=== PATIENT | female | born 1945 | race Caucasian/White ===

== ENCOUNTER → 2023-06-20 08:41 | Outpatient (REF) | payer MEDICARE, OTHER, SELFPAY | LOC: HWWDC 08:41 | PROVIDERS: ATTENDING PHYSICIAN Internal Medicine | DX: Z12.31 Encounter for screening mammogram for malignant neoplasm of breast (principal) | CPT/HCPCS: 77063; 77067 ==

== ENCOUNTER → 2023-06-25 06:53 | Outpatient (REF) | payer MEDICARE, OTHER, SELFPAY | LOC: MRI 06:53 | PROVIDERS: ATTENDING PHYSICIAN Physician Assistant Surgical; FAMILY PHYSICIAN Internal Medicine | DX: M75.42 Impingement syndrome of left shoulder (principal) | CPT/HCPCS: 73221 ==

== ENCOUNTER → 2023-07-16 11:21 | Outpatient (REF) | payer MEDICARE, OTHER, SELFPAY ==
[2023-07-16 13:52] LABS: Hematocrit 36.1 % (37.0-47.0); Hemoglobin 12.1 g/dL (12.0-16.0); Mean Corp Hgb Conc. 33.5 g/dL (33.0-37.0); Mean Corpuscular Hgb 31.1 pg (27.0-31.0); Mean Corpuscular Volume 92.8 fL (81.0-99.0); Mean Platelet Volume 9.4 fL (7.4-10.4); Platelet Count 233 10^3/uL (130-400); Red Blood Cell Count 3.89 10^6/uL (4.20-5.40); Red Cell Dist. Width 12.7 % (11.5-14.5); White Blood Cell Count 5.2 10^3/uL (4.8-10.8)
== END ==
LOC: SDSPAT 11:21
PROVIDERS: ATTENDING PHYSICIAN Specialist; FAMILY PHYSICIAN Internal Medicine
DX: Z01.818 Encounter for other preprocedural examination (principal)
CPT/HCPCS: 36415; 85027; 93005

== ENCOUNTER 2023-07-31 06:42 | Day surgery (SDC) | payer MEDICARE, OTHER, SELFPAY ==
[2023-07-16 12:13] VITALS: BMI 22.2
[2023-07-31] VITALS (9 sets, daily range): BP systolic 110–173; BP diastolic 65–98; BMI 22.2
[2023-07-31] MEDS: CELEBREX 200 MG PO (09:15)
[2023-07-31] MEDS: TYLENOL 1000 MG PO (09:16)
[2023-07-31] MEDS: NORMOSOL-R 1000 IV (09:16)
--- NOTE | 2023-07-31 18:37 | SUR.PHASEI ---
1814 patient awoke in pacu , vss, urge to void, attempted to use bedpan - unsuccessful. restless and constant movement when awake, patient states - ' I am always moving'. no pain, no nausea, to keep pillow with sling for 6 weeks. some feeling in
left hand post block, good hand grasp, some numbness tingling fingers. patient admits to anxiety about 's chronic illness. dressing dry. Report to [facility] and transferred - anxious to get home
== END 2023-07-31 19:14 | disposition home or self-care (01) ==
LOC: SDS 06:42
PROVIDERS: ATTENDING PHYSICIAN Specialist; FAMILY PHYSICIAN Internal Medicine
DX: M75.122 Complete rotator cuff tear or rupture of left shoulder, not specified as traumatic (principal); M75.42 Impingement syndrome of left shoulder; M94.212 Chondromalacia, left shoulder
CPT/HCPCS: 29827; 29826; C1713

== ENCOUNTER 2023-09-20 10:17 | Emergency (ER) | payer MEDICARE, OTHER, SELFPAY ==
[2023-09-20 10:21] VITALS: BP 172/111
--- NOTE | 2023-09-20 10:59 | ED.GENMED ---
History of Present Illness
General
Chief Complaint: Musculo-Skeletal Complaint
Source: patient
Exam Limitations: none
Time Seen by Provider: 09/20/23 10:48
Nursing documentation reviewed up to this point in time: agreed with
History of Present Illness
History of Present Illness:
Patient is a 78-year-old female who complains of right knee pain from a twisting injury. Patient reports this happened last night. She denies hitting her head denies any other injuries. She complains of right knee pain. She does have known
arthritis in this right knee. She did take 1 200 mg of ibuprofen this morning but nothing else. She reports she has been icing it. She reports has been using a cane to walk and can barely put weight on this knee.
Past History
Past History
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
rectal prolapse, anxiety, depression)
ED Past Surgical History: Cholecystectomy, Gynecological (hysterectomy) and Other (Partial thyroidectomy, h/o SAMAYOA procedure on the rectum secondary to rectal prolapse)
Patient has exhibited threatening behavior?: No
Social History
Tobacco: Non-smoker
Alcohol: None
Drug: None
Personal:
Living: with family
Family History
Family History: Other (Noncontributory)
Review of Systems
Review of Systems
Allergies reviewed?: Yes
All Other Systems: ROS reviewed and negative except as documented in HPI and ROS
Constitutional: Reports no symptoms; Denies fever
Musculoskeletal: Reports other (right knee pain )
Skin: Reports no symptoms
Neurological: Reports no symptoms
Psychiatric: Reports no symptoms
Phy Exam
General Physical Exam
General Presentation: no apparent distress
General age: appears stated age
General Skin: warm and dry
General Habitus: normal
General Mental: alert
General Hydration: appears well hydrated
Neurological Exam
Neurological Exam: alert and oriented x3
Musculoskeletal Exam
Musculoskeletal Exam: other (Right lower extremity strong pulses no obvious effusion pain with range of motion no medial or lateral ligament laxity)
Skin Exam
Skin Exam: normal color and warm/dry
Psychiatric Exam
Psychiatric Exam: normal mood/affect
Course
Orders/Labs/Results
Orders:
Orders
09/20/23 10:57
Knee, Right 4 or More Views [CR Knee- Right 4 Or More View*] Urgent
Comment:
Reason For Exam: trauma
09/20/23 10:58
Acetaminophen [Tylenol] 650 mg PO NOW STA
09/20/23 10:59
Ketorolac [Toradol] 30 mg IM NOW STA
09/20/23 13:31
Knee Immobilizer Right-Treatme ONCE
Vital Signs
Initial and Last Documented VS:
Initial Vital Signs
Temp Pulse Resp BP Pulse Ox
98.2 F 87 18 172/111 99
09/20/23 10:21 09/20/23 10:21 09/20/23 10:21 09/20/23 10:21 09/20/23 10:21
Last Documented Vital Signs
Temp Pulse Resp BP Pulse Ox
98.2 F 87 18 172/111 99
09/20/23 10:21 09/20/23 10:21 09/20/23 10:21 09/20/23 10:21 09/20/23 10:21
MDM/Problems Addressed
MDM/Problems Addressed:
Symptoms are consistent with knee sprain strain. Will DC with immobilizer alternating ibuprofen and Tylenol with close outpatient follow-up with [facility] orthopedic whom she has seen in the past.
*Radiology
Radiology exam reviewed: radiology read reviewed
*Critical Care Note
Total Time (30-74mins, 75-104mins- exclusive of procedures): Not Applicable
ED Attending Note
-
Portions of this chart may have been created with voice recognition software.� Occasional wrong word or��sound alike� substitutions may have occurred due to the inherent limitations of voice recognition software.
Discharge Plan
Departure
Patient Disposition: Home (Routine Discharge)
Date of Disposition: 09/20/23
Time of Disposition: 13:32
Patient with high blood pressure during this ER visit?: Yes
Condition: Fair
Covid-19: Not Applicable
Discharge Problem:
Knee sprain
Instructions: Knee Sprain ED
Prescriptions:
No Action
levothyroxine 75 MCG tablet
75 mcg PO DAILY
atorvastatin 40 MG tablet
40 mg PO DAILY
fluorometholone 1 DROP drops,suspension
2 drp BOTH EYES BID
Patient Comments:
to affected eye
vitamin B complex 1 TAB tablet
1 tab PO DAILY
losartan 50 MG tablet
50 mg PO DAILY
latanoprost 1 DROP drops
1 drp LEFT EYE HS
clonazepam 1 MG tablet
1 mg PO BID
multivitamin with folic acid [Tab-A-David] 1 TABLET tablet
1 tab PO DAILY
Probiotic 5 billion cell Capsule, Sprinkle
2 cap PO DAILY
omeprazole 40 mg Capsule,Delayed Release(Dr/Ec)
40 mg PO DAILY
ascorbic acid (vitamin C) [Vitamin C] 500 MG tablet
500 mg PO DAILY
famotidine 40 mg Tablet
40 mg PO DAILY
gabapentin 300 mg Capsule
300 mg PO BID
lamotrigine 100 mg Tablet
100 mg PO DAILY
Citrucel Fiber Laxative
1 dose PO DAILY
quetiapine 50 mg Tablet
50 mg PO DAILY
Erythromycin Eye Drops
1 drp BOTH EYES DAILY
Systane Complete 0.6 % Drops
1 drp OPHTHALMIC (EYE) DAILY PRN (Reason: dry eyes)
Referrals:
Tom Miller MD [Active] -
Yehuda Ovalles MD [Family Provider] -
Activity Restrictions/Additional Instructions:
Wear immobilizer for support and continue to ice the affected area for the first 24 to 48 hours. Keep elevated much as possible. Alternate with Tylenol ibuprofen. Call your orthopedic doctor today to schedule appointment in the next several
days for reevaluation.
return if any worsening of symptoms.
Interventions
Interventions:
*Risk Screen - Suicide Last Done: 09/20/23 10:21
*General Assessment Last Done: 09/20/23 10:21
*Neglect/Abuse Screening Last Done: 09/20/23 10:21
*ED COVID-19 Vaccine History Last Done: 09/20/23 10:21
ED-Musculoskeletal Assessment Last Done: 09/20/23 11:30
Discharge Date and Time
Print Language: YORUBA
[2023-09-20] MEDS: TYLENOL 650 MG PO (11:28)
[2023-09-20] MEDS: TORADOL 30 MG IM (11:29)
[2023-09-20 13:53] VITALS: BP 160/87
== END 2023-09-20 13:56 | disposition home or self-care (01) ==
LOC: EMR 10:17
PROVIDERS: EMERGENCY PHYSICIAN Emergency Medicine; FAMILY PHYSICIAN Internal Medicine
DX: S83.91XA Sprain of unspecified site of right knee, initial encounter (principal); X50.1XXA Overexertion from prolonged static or awkward postures, initial encounter; I10 Essential (primary) hypertension; E78.00 Pure hypercholesterolemia, unspecified; E03.9 Hypothyroidism, unspecified; M17.11 Unilateral primary osteoarthritis, right knee; F32.A Depression, unspecified; F41.9 Anxiety disorder, unspecified; K57.90 Diverticulosis of intestine, part unspecified, without perforation or abscess without bleeding; K52.9 Noninfective gastroenteritis and colitis, unspecified; K21.9 Gastro-esophageal reflux disease without esophagitis; K44.9 Diaphragmatic hernia without obstruction or gangrene; M19.90 Unspecified osteoarthritis, unspecified site; M48.00 Spinal stenosis, site unspecified; H40.9 Unspecified glaucoma; F43.10 Post-traumatic stress disorder, unspecified; Z86.73 Personal history of transient ischemic attack (TIA), and cerebral infarction without residual deficits; Z90.49 Acquired absence of other specified parts of digestive tract; Z88.5 Allergy status to narcotic agent; Z88.8 Allergy status to other drugs, medicaments and biological substances
CPT/HCPCS: 99283; 29505; 73564

== ENCOUNTER → 2023-09-28 06:53 | Outpatient (REF) | payer MEDICARE, OTHER, SELFPAY | LOC: PAVMRI 06:53 | PROVIDERS: ATTENDING PHYSICIAN Student in an Organized Health Care Education/Training Program; FAMILY PHYSICIAN Internal Medicine | DX: M17.11 Unilateral primary osteoarthritis, right knee (principal) | CPT/HCPCS: 73721 ==

== ENCOUNTER → 2023-11-09 13:09 | Outpatient (REF) | payer MEDICARE, OTHER, SELFPAY ==
[2023-11-09 16:27] LABS: % Basophils 0.4 % (0-2); % Eosinophils 0.1 % (0-6); % Immature Granulocytes 0.6 % (0-0.5); % Lymphocytes 10.4 % (20.5-51.1); % Neutrophils 85.5 % (42.2-75.2); Absolute Basophils 0.1 10^3/uL (0-0.2); Absolute Immature Granulocytes 0.1 10^3/uL (0-0.05); Absolute Lymphocytes 1.4 10^3/uL (1.2-3.4); Absolute Monocytes 0.4 10^3/uL (0.1-0.6); Absolute Neutrophils 11.9 10^3/uL (1.4-6.5); Hematocrit 37.1 % (37.0-47.0); Hemoglobin 12.8 g/dL (12.0-16.0); Mean Corp Hgb Conc. 34.5 g/dL (33.0-37.0); Mean Corpuscular Hgb 30.4 pg (27.0-31.0); Mean Corpuscular Volume 88.1 fL (81.0-99.0); Mean Platelet Volume 9.5 fL (7.4-10.4); Nucleated Red Blood Cells % 0 %; Platelet Count 246 10^3/uL (130-400); Red Blood Cell Count 4.21 10^6/uL (4.20-5.40); Red Cell Dist. Width 13.5 % (11.5-14.5); White Blood Cell Count 13.9 10^3/uL (4.8-10.8)
[2023-11-09 16:31] LABS: Blood Urea Nitrogen 30 mg/dl (7-17); Carbon Dioxide 20 mmol/L (22-30); Chloride 108 mmol/L (98-107); Glucose 172 mg/dl (70-99); Phosphorus 3.2 mg/dl (2.5-4.5); Potassium 4.2 mmol/L (3.5-5.1); Sodium 140 mmol/L (135-145); eGFR > 60.00
[2023-11-09 17:01] LABS: TSH Reflex To Free T4 0.17 uIU/ml (0.47-4.68)
[2023-11-09 17:30] LABS: Free T4 0.84 ng/dl (0.78-2.19)
== END ==
LOC: HWLAB 13:09
PROVIDERS: ATTENDING PHYSICIAN Internal Medicine; REFERRING PHYSICIAN Specialist
DX: I10 Essential (primary) hypertension (principal); E03.9 Hypothyroidism, unspecified
CPT/HCPCS: 36415; 80069; 84439; 84443; 85025

== ENCOUNTER → 2024-02-13 17:41 | Outpatient (REF) | payer MEDICARE, OTHER, SELFPAY | LOC: PAVMRI 17:41 | PROVIDERS: ATTENDING PHYSICIAN Physician Assistant Surgical; FAMILY PHYSICIAN Internal Medicine | DX: M25.512 Pain in left shoulder (principal) | CPT/HCPCS: 73221 ==

== ENCOUNTER → 2024-02-15 14:23 | Outpatient (REF) | payer MEDICARE, OTHER, SELFPAY ==
[2024-02-15 14:49] LABS: % Basophils 1.1 % (0-2); % Eosinophils 3.4 % (0-6); % Immature Granulocytes 0.2 % (0-0.5); % Lymphocytes 41.9 % (20.5-51.1); % Monocytes 11.6 % (1.7-9.3); % Neutrophils 41.8 % (42.2-75.2); Absolute Basophils 0.1 10^3/uL (0-0.2); Absolute Eosinophils 0.2 10^3/uL (0-0.7); Absolute Lymphocytes 2.2 10^3/uL (1.2-3.4); Absolute Monocytes 0.6 10^3/uL (0.1-0.6); Absolute Neutrophils 2.2 10^3/uL (1.4-6.5); Hemoglobin 12.4 g/dL (12.0-16.0); Mean Corp Hgb Conc. 33.5 g/dL (33.0-37.0); Mean Corpuscular Volume 92.5 fL (81.0-99.0); Mean Platelet Volume 8.5 fL (7.4-10.4); Nucleated Red Blood Cells % 0 %; Platelet Count 194 10^3/uL (130-400); White Blood Cell Count 5.3 10^3/uL (4.8-10.8)
[2024-02-15 15:02] LABS: ALT (SGPT) 29 U/L (0-35); AST (SGOT) 22 U/L (14-36); Albumin 4.7 g/dl (3.5-5.0); Alkaline Phosphatase 48 U/L (38-126); Blood Urea Nitrogen 26 mg/dl (7-17); Calcium 9.8 mg/dl (8.4-10.2); Carbon Dioxide 26 mmol/L (22-30); Chloride 106 mmol/L (98-107); Glucose 102 mg/dl (70-99); Sodium 144 mmol/L (135-145); Total Bilirubin 0.4 mg/dl (0.2-1.3); Total Protein 7.4 g/dl (6.3-8.2); eGFR > 60.00
== END ==
LOC: REG 14:23
PROVIDERS: ATTENDING PHYSICIAN Internal Medicine
DX: R73.01 Impaired fasting glucose (principal); E83.52 Hypercalcemia
CPT/HCPCS: 36415; 80053; 85025

== ENCOUNTER → 2024-02-18 14:34 | Outpatient (REF) | payer MEDICARE, OTHER, SELFPAY ==
[2024-02-18 15:24] LABS: % Basophils 1.2 % (0-2); % Eosinophils 2.6 % (0-6); % Immature Granulocytes 0.4 % (0-0.5); % Monocytes 12.2 % (1.7-9.3); % Neutrophils 38.6 % (42.2-75.2); Absolute Basophils 0.1 10^3/uL (0-0.2); Absolute Eosinophils 0.2 10^3/uL (0-0.7); Absolute Lymphocytes 2.6 10^3/uL (1.2-3.4); Absolute Monocytes 0.7 10^3/uL (0.1-0.6); Absolute Neutrophils 2.2 10^3/uL (1.4-6.5); Hematocrit 36.9 % (37.0-47.0); Hemoglobin 12.9 g/dL (12.0-16.0); Mean Corpuscular Hgb 31.9 pg (27.0-31.0); Mean Corpuscular Volume 91.3 fL (81.0-99.0); Mean Platelet Volume 8.9 fL (7.4-10.4); Nucleated Red Blood Cells % 0 %; Platelet Count 232 10^3/uL (130-400); Red Blood Cell Count 4.04 10^6/uL (4.20-5.40); Red Cell Dist. Width 13.1 % (11.5-14.5); White Blood Cell Count 5.7 10^3/uL (4.8-10.8)
[2024-02-18 15:46] LABS: ALT (SGPT) 30 U/L (0-35); AST (SGOT) 23 U/L (14-36); Albumin 4.8 g/dl (3.5-5.0); Alkaline Phosphatase 52 U/L (38-126); Blood Urea Nitrogen 17 mg/dl (7-17); Calcium 10.2 mg/dl (8.4-10.2); Carbon Dioxide 27 mmol/L (22-30); Chloride 106 mmol/L (98-107); Glucose 92 mg/dl (70-99); Potassium 4.4 mmol/L (3.5-5.1); Sodium 144 mmol/L (135-145); Total Bilirubin 0.4 mg/dl (0.2-1.3); Total Protein 7.3 g/dl (6.3-8.2); eGFR > 60.00
== END ==
LOC: REG 14:34
PROVIDERS: ATTENDING PHYSICIAN Internal Medicine
DX: R73.01 Impaired fasting glucose (principal); E83.52 Hypercalcemia
CPT/HCPCS: 36415; 80053; 85025

== ENCOUNTER 2024-03-01 10:44 | Emergency (ER) | payer MEDICARE, OTHER, SELFPAY ==
[2024-03-01 10:46] VITALS: BP 197/98
[2024-03-01 10:54] VITALS: BP 150/78
[2024-03-01 11:01] VITALS: BP 184/79
--- NOTE | 2024-03-01 11:07 | EDRN ---
Lori Curran PA in room w/ pt at this time.
--- NOTE | 2024-03-01 11:10 | ED.GENMED ---
History of Present Illness
General
Chief Complaint: Musculo-Skeletal Complaint
Source: patient and physician
Time Seen by Provider: 03/01/24 11:00
History of Present Illness
History of Present Illness:
79-year-old female with past medical history of previous TIA, hypertension, hyperlipidemia, GERD/diverticulitis, thyroid disorder presenting to the emergency department at urgent care's request for evaluation of neck pain that started yesterday
described to be sharp spasms that radiate along the right side of her neck but denies any radiation into the arms, focal weakness or numbness, chest pain or shortness of breath. Pain worsens with range of motion. She attempted to rest yesterday
but did not take anything for pain, upon awakening this morning symptoms worsened which is what prompted her to go to urgent care. She did not take anything for pain prior to arrival and states the urgent care told her that we would give her
something here for pain after they referred her here. She denies any fevers or infectious symptoms. Per UC patient had new t-wave inversion on EKG done at their facility but patient denying angina or anginal equivalents
Past History
Past History
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
rectal prolapse, anxiety, depression)
ED Past Surgical History: Bowel resection, Cholecystectomy, Gynecological (hysterectomy), Orthopedic and Other (Partial thyroidectomy, h/o SAMAYOA procedure on the rectum secondary to rectal prolapse)
Patient has exhibited threatening behavior?: No
Social History
Tobacco: Non-smoker
Alcohol: None
Drug: None
Personal:
Living: with family
Family History
Family History: Other (Noncontributory)
Review of Systems
Review of Systems
All Other Systems: ROS reviewed and negative except as documented in HPI and ROS
Phy Exam
Physical Exam
Physical Exam:
GENERAL: Alert , anxious affect, frequently will jump due to 'sharp pain in neck occuring'
HEAD: NCAT
EYE: clear conjunctiva
NECK: Supple, no significant adenopathy. Patient allows for ROM actively and passively of neck but notes pain worse with lateral rotation and neck flexion
ENT: o/p clr, mmm.
CARDIAC: Regular rate and rhythm .
LUNGS: Clear breath sounds bilaterally, no acute respiratory distress, no wheezes/rales/rhonchi
NEUROLOGICAL: Alert and oriented, no focal neuro deficits, LAUREANO x 4
SKIN: Warm and dry, skin intact.
MUSCULOSKELETAL: No edema, well perfused.
PSYCH: Normal and appropriate interaction.
Scores
Heart Failure Risk
Heart Failure Risk Score: Not Applicable
Heart Score for Chest Pain Patients
STEMI patient?: Not applicable
Withdrawal Assessment of Alcohol
Withdrawal Assessment Completed?: Not applicable
Course
Orders/Labs/Results
Orders:
Orders
03/01/24 11:09
CT Cervical Spine W/o Iv Contr Urgent
Comment:
Reason For Exam: severe neck pain
Dexamethasone Sod Phosphate [Decadron] 10 mg IV NOW STA
Ketorolac [Toradol] 15 mg IV NOW STA
Lidocaine [Lidocaine 4% Patch] 1 patch TOPICAL NOW STA
Apply Lidocaine patch(s) to:: neck
03/01/24 11:14
Electrocardiogram (*1) Urgent
Reason for Study: Abnormal EKG
EKG- Treatment ONCE
03/01/24 11:25
Basic Metabolic Panel Urgent
Complete Blood Count/With Diff Urgent
Troponin I Urgent
Abnormal Lab Results
03/01/24
11:25
MCH 31.2 H pg
(27.0-31.0)
Absolute Monos (auto) 0.7 H 10^3/uL
(0.1-0.6)
Monocytes % 12.1 H %
(1.7-9.3)
Chloride 109 H mmol/L
(98-107)
BUN 19 H mg/dl
(7-17)
Creatinine 0.5 L mg/dL
(0.6-1.0)
Glucose 133 H mg/dl
(70-99)
03/01/24 11:25
03/01/24 11:25
Vital Signs
Initial and Last Documented VS:
Initial Vital Signs
Temp Pulse Resp BP Pulse Ox
97.4 F 80 16 197/98 97
03/01/24 10:46 03/01/24 10:46 03/01/24 10:46 03/01/24 10:46 03/01/24 10:46
Last Documented Vital Signs
Temp Pulse Resp BP Pulse Ox
97.4 F 67 24 163/81 94
03/01/24 10:46 03/01/24 12:19 03/01/24 12:19 03/01/24 12:19 03/01/24 12:19
MDM/Problems Addressed
Differential Diagnosis Includes:
neck strain, cervical radiculopathy, disc herniation, no infectious symptoms, no focal neuro deficits to suspect carotid dissection/vertebral dissection, atypical ACS presentation
MDM/Problems Addressed:
79-year-old female presenting to the emergency department for evaluation of sharp shooting right-sided neck pain that started yesterday but much more severe today. Has yet to take any medications. Pain while not reproducible with palpation is
clearly reproducible with range of motion. Patient is intermittently jumping in bed secondary to the pain and appears quite uncomfortable. She is hypertensive here. Will treat with IV steroid, anti-inflammatory and topical lidocaine. CT of the
cervical spine ordered. Reassessment following
Chronic conditions affecting care: HTN
*Radiology
Radiology exam reviewed: radiology read reviewed
*Pulse Oximetry
Patient hypoxic: no
*EKG
Interpreted by ED Provider?: Yes
Heart Rate: 69
Rate: normal
Rhythm: sinus
Ischemia: no ischemia
*County Nurse Interpretation
Rate: normal
Rhythm: sinus
*Critical Care Note
Total Time (30-74mins, 75-104mins- exclusive of procedures): Not Applicable
Data Reviewed
Review of Other/Old Records Reveals: Labs, Records and Radiology Studies
Comment
Comment:
Patient had MRI of her shoulder done just a couple of weeks ago which showed significant degenerative changes and rotator cuff issues. Unfortunately no recent imaging of the cervical spine
Patient Management
Social determinants of health affecting care: Living situation and Strong social support
Escalation/DeEscalation of care consider admission/obs:
Patient's labs all reassuring. Negative troponin and nonischemic EKG. CT of the cervical spine shows mild degenerative changes, most pronounced at C6-C7. She is feeling better with the medications provided here. Prescription for steroid taper
sent to pharmacy. Advise she can continue with anti-inflammatories as needed. She will follow-up with primary care provider and her orthopedist as an outpatient.
ED Attending Note
-
Portions of this chart may have been created with voice recognition software.� Occasional wrong word or��sound alike� substitutions may have occurred due to the inherent limitations of voice recognition software.
Discharge Plan
Departure
Patient Disposition: Home (Routine Discharge)
Date of Disposition: 03/01/24
Time of Disposition: 12:38
Patient with high blood pressure during this ER visit?: Yes
Discharge Problem:
Cervicalgia
Instructions: Neck Pain ED
Prescriptions:
New
methylprednisolone [Medrol (Boo)] 4 mg tablets,dose pack
4 mg PO DIRECTED Qty: 21 0RF
No Action
levothyroxine 75 MCG tablet
75 mcg PO DAILY
atorvastatin 40 MG tablet
40 mg PO DAILY
fluorometholone 1 DROP drops,suspension
2 drp BOTH EYES BID
Patient Comments:
to affected eye
vitamin B complex 1 TAB tablet
1 tab PO DAILY
losartan 50 MG tablet
50 mg PO DAILY
latanoprost 1 DROP drops
1 drp LEFT EYE HS
clonazepam 1 MG tablet
1 mg PO BID
multivitamin with folic acid [Tab-A-David] 1 TABLET tablet
1 tab PO DAILY
Probiotic 5 billion cell Capsule, Sprinkle
2 cap PO DAILY
omeprazole 40 mg Capsule,Delayed Release(Dr/Ec)
40 mg PO DAILY
ascorbic acid (vitamin C) [Vitamin C] 500 MG tablet
500 mg PO DAILY
famotidine 40 mg Tablet
40 mg PO DAILY
gabapentin 300 mg Capsule
300 mg PO BID
lamotrigine 100 mg Tablet
100 mg PO DAILY
Citrucel Fiber Laxative
1 dose PO DAILY
quetiapine 50 mg Tablet
50 mg PO DAILY
Erythromycin Eye Drops
1 drp BOTH EYES DAILY
Systane Complete 0.6 % Drops
1 drp OPHTHALMIC (EYE) DAILY PRN (Reason: dry eyes)
Referrals:
Yehuda Ovalles MD [Family Provider] -
Interventions
Interventions:
*Risk Screen - Suicide Last Done: 03/01/24 11:15
*General Assessment Last Done: 03/01/24 11:15
*Neglect/Abuse Screening Last Done: 03/01/24 11:15
ED- Fall Risk Assessment Last Done: 03/01/24 11:15
*ED COVID-19 Vaccine History Last Done: 03/01/24 11:15
*Nursing Disposition Last Done: 03/01/24 12:50
ED-Musculoskeletal Assessment Last Done: 03/01/24 11:15
Discharge Date and Time
Discharge Date/Time: 03/01/24 12:50
Print Language: PALAUAN
[2024-03-01 11:15] VITALS: BMI 24.0
[2024-03-01] MEDS: TORADOL 15 MG IV (11:19)
[2024-03-01] MEDS: DECADRON 10 MG IV (11:19)
[2024-03-01] MEDS: LIDOCAINE 4% PATCH 1 PATCH TOPICAL (11:20)
[2024-03-01 11:44] LABS: % Basophils 1.5 % (0-2); % Immature Granulocytes 0.4 % (0-0.5); % Lymphocytes 35.9 % (20.5-51.1); % Monocytes 12.1 % (1.7-9.3); % Neutrophils 47.1 % (42.2-75.2); Absolute Basophils 0.1 10^3/uL (0-0.2); Absolute Eosinophils 0.2 10^3/uL (0-0.7); Absolute Lymphocytes 1.9 10^3/uL (1.2-3.4); Absolute Monocytes 0.7 10^3/uL (0.1-0.6); Absolute Neutrophils 2.5 10^3/uL (1.4-6.5); Hemoglobin 13.1 g/dL (12.0-16.0); Mean Corp Hgb Conc. 33.6 g/dL (33.0-37.0); Mean Corpuscular Hgb 31.2 pg (27.0-31.0); Mean Corpuscular Volume 92.9 fL (81.0-99.0); Mean Platelet Volume 9.2 fL (7.4-10.4); Nucleated Red Blood Cells % 0 %; Platelet Count 212 10^3/uL (130-400); Red Cell Dist. Width 12.8 % (11.5-14.5); White Blood Cell Count 5.4 10^3/uL (4.8-10.8)
[2024-03-01 11:48] LABS: Blood Urea Nitrogen 19 mg/dl (7-17); Calcium 10.2 mg/dl (8.4-10.2); Carbon Dioxide 26 mmol/L (22-30); Chloride 109 mmol/L (98-107); Glucose 133 mg/dl (70-99); Potassium 4.3 mmol/L (3.5-5.1); Sodium 145 mmol/L (135-145); eGFR > 60.00
--- NOTE | 2024-03-01 11:48 | EDRN ---
Pt states pain is better and now an 8/10 at its worst. Prior to medication pain was intermittently 10/10 and 5-6/10 at baseline. Pt states pain started yesterday afternoon in her R neck and was severe this am w/ int increase in pain and baseline
5-6/10. Pt went to and was seen but was sent here for neck pain but also and abnormal EKG.
[2024-03-01 11:59] LABS: Troponin I < 0.012 ng/ml
[2024-03-01 12:19] VITALS: BP 163/81
--- NOTE | 2024-03-01 12:35 | EDRN ---
Lori Curran PA in to see pt.
--- NOTE | 2024-03-01 12:42 | EDRN ---
Lori Curran PA in room w/pt
== END 2024-03-01 12:50 | disposition home or self-care (01) ==
LOC: EMR 10:44
PROVIDERS: Physician Assistant Medical; EMERGENCY PHYSICIAN Emergency Medicine; FAMILY PHYSICIAN Internal Medicine
DX: M54.2 Cervicalgia (principal); I10 Essential (primary) hypertension; K21.9 Gastro-esophageal reflux disease without esophagitis; E78.5 Hyperlipidemia, unspecified; Z86.73 Personal history of transient ischemic attack (TIA), and cerebral infarction without residual deficits; Z90.710 Acquired absence of both cervix and uterus; E89.0 Postprocedural hypothyroidism
CPT/HCPCS: 99284; 96374; 96375; 72125; 80048; 84484; 85025; 93005

== ENCOUNTER → 2024-04-15 10:57 | Outpatient (REF) | payer MEDICARE, OTHER, SELFPAY ==
[2024-04-15 15:52] LABS: Albumin 4.8 g/dl (3.5-5.0); Blood Urea Nitrogen 19 mg/dl (7-17); Calcium 10.1 mg/dl (8.4-10.2); Carbon Dioxide 28 mmol/L (22-30); Chloride 102 mmol/L (98-107); Glucose 120 mg/dl (70-99); Phosphorus 3.5 mg/dl (2.5-4.5); Potassium 4.2 mmol/L (3.5-5.1); Sodium 140 mmol/L (135-145); eGFR > 60.00
[2024-04-15 16:06] LABS: Free T4 1.17 ng/dl (0.78-2.19)
[2024-04-15 16:20] LABS: TSH 1.04 uIU/ml (0.47-4.68)
== END ==
LOC: HWLAB 10:57
PROVIDERS: ATTENDING PHYSICIAN Internal Medicine
DX: I10 Essential (primary) hypertension (principal); E05.90 Thyrotoxicosis, unspecified without thyrotoxic crisis or storm
CPT/HCPCS: 36415; 80069; 84439; 84443

== ENCOUNTER 2024-05-09 01:55 | Emergency (ER) | payer MEDICARE, OTHER, SELFPAY ==
--- NOTE | 2024-05-09 07:00 | ED.GENMED ---
History of Present Illness
General
Chief Complaint: Skin Problem
Source: patient
Exam Limitations: none
Time Seen by Provider: 05/09/24 06:31
History of Present Illness
History of Present Illness:
79-year-old female complaining of progressive painful pruritic rash that has progressed over 3 to 4 days. 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 She apparently was placed on cephalexin doxycycline mupirocin. The
rash seems to have started since then. She went to urgent care recently and was started on prednisone. She is currently on a reasonable prednisone taper. However the rash has persisted and is actually progressing. She is also been taking
Denise. She has an appointment Sunday with dermatology.
Past History
Past History
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
rectal prolapse, anxiety, depression)
ED Past Surgical History: Bowel resection, Cholecystectomy, Gynecological (hysterectomy), Orthopedic and Other (Partial thyroidectomy, h/o SAMAYOA procedure on the rectum secondary to rectal prolapse)
Patient has exhibited threatening behavior?: No
Social History
Tobacco: Non-smoker
Alcohol: None
Drug: None
Personal:
Living: with family
Family History
Family History: Other (Noncontributory)
Review of Systems
Review of Systems
All Other Systems: Not applicable
Constitutional: Denies fever or chills
Respiratory: Reports no symptoms
Phy Exam
Physical Exam
Physical Exam:
GENERAL: Alert and oriented in no apparent distress. Currently sitting up on the edge of the bed looking at her calendar
EYE: Orbits normal. No conjunctival injection or ulcerations. No intraoral ulcerations
NECK: Supple
CARDIAC: Regular rate and rhythm without any obvious murmurs.
LUNGS: Clear breath sounds,normal
NEUROLOGICAL: Alert and oriented , grossly non-focal
SKIN: Warm and dry, maculopapular blanching rash greatest in the upper chest wall and upper back but also noted on the arms and legs. No petechia or purpura. Area of diffuse erythema and some crusting to the left upper arm.
MUSCULOSKELETAL: No edema,no deformity.Good color
PSYCH: Normal and appropriate interaction.
Course
Orders/Labs/Results
Orders:
Orders
05/09/24 06:59
IV Insert/Care/Rem.- Treatment PRN
05/09/24 07:27
Basic Metabolic Panel Urgent
Complete Blood Count/With Diff Urgent
Abnormal Lab Results
05/09/24
07:27
WBC 11.1 H 10^3/uL
(4.8-10.8)
RBC 3.98 L 10^6/uL
(4.20-5.40)
Hct 36.3 L %
(37.0-47.0)
Abs Immat Gran (auto) 0.1 H 10^3/uL
(0-0.05)
Absolute Monos (auto) 1.1 H 10^3/uL
(0.1-0.6)
Immature Gran % 0.8 H %
(0-0.5)
Monocytes % 10.0 H %
(1.7-9.3)
BUN 34 H mg/dl
(7-17)
05/09/24 07:27
05/09/24 07:27
Vital Signs
Initial and Last Documented VS:
Initial Vital Signs
Temp Pulse Resp Pulse Ox
97.9 F 70 19 97
05/09/24 01:58 05/09/24 01:58 05/09/24 01:58 05/09/24 01:58
Last Documented Vital Signs
Temp Pulse Resp BP Pulse Ox
97.6 F 82 20 137/81 99
05/09/24 09:35 05/09/24 09:35 05/09/24 09:35 05/09/24 09:35 05/09/24 09:35
MDM/Problems Addressed
Differential Diagnosis Includes:
Maculopapular rash. Different than the rash to the left upper arm which apparently is related to her basal cell. Patient has chronic raspiness to her voice but this is a vocal cord issue and is chronic. She is in no distress. Will check basic
labs although highly expect an elevated white count. 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
I am suspicious that this rash may be from lamotrigine. She did have some rash prior to starting antibiotics. She has stopped the antibiotics and the rash continues to get worse. She started the lamotrigine about 6 months ago.
*Critical Care Note
Total Time (30-74mins, 75-104mins- exclusive of procedures): Not Applicable
Update Note
Update Note:
Patient is remained medically stable nontoxic. Labs are stable. Maculopapular rash may be secondary to lamotrigine. No intraoral or mucous membrane ulcerations. Nothing to support Kern-Boo syndrome discussed with patient's dermatology
nurse practitioner who can see in the office now.
ED Attending Note
-
Portions of this chart may have been created with voice recognition software.� Occasional wrong word or��sound alike� substitutions may have occurred due to the inherent limitations of voice recognition software.
Discharge Plan
Departure
Patient Disposition: Home (Routine Discharge)
Date of Disposition: 05/09/24
Time of Disposition: 09:21
Patient with high blood pressure during this ER visit?: Yes
Discharge Problem:
Maculopapular rash, Suspect drug reaction
Instructions: Skin Rash (DC), BLOOD PRESSURE
Prescriptions:
No Action
levothyroxine 75 MCG tablet
75 mcg PO DAILY
atorvastatin 40 MG tablet
40 mg PO DAILY
fluorometholone 1 DROP drops,suspension
2 drp BOTH EYES BID
Patient Comments:
to affected eye
vitamin B complex 1 TAB tablet
1 tab PO DAILY
losartan 50 MG tablet
50 mg PO DAILY
latanoprost 1 DROP drops
1 drp LEFT EYE HS
clonazepam 1 MG tablet
1 mg PO BID
multivitamin with folic acid [Tab-A-David] 1 TABLET tablet
1 tab PO DAILY
Probiotic 5 billion cell Capsule, Sprinkle
2 cap PO DAILY
omeprazole 40 mg Capsule,Delayed Release(Dr/Ec)
40 mg PO DAILY
ascorbic acid (vitamin C) [Vitamin C] 500 MG tablet
500 mg PO DAILY
famotidine 40 mg Tablet
40 mg PO DAILY
gabapentin 300 mg Capsule
300 mg PO BID
lamotrigine 100 mg Tablet
100 mg PO DAILY
Citrucel Fiber Laxative
1 dose PO DAILY
quetiapine 50 mg Tablet
50 mg PO DAILY
Erythromycin Eye Drops
1 drp BOTH EYES DAILY
Systane Complete 0.6 % Drops
1 drp OPHTHALMIC (EYE) DAILY PRN (Reason: dry eyes)
methylprednisolone [Medrol (Boo)] 4 mg tablets,dose pack
4 mg PO DIRECTED Qty: 21 0RF
Referrals:
UNKNOWN - PT DOES,NOT KNOW [Family Provider] -
Activity Restrictions/Additional Instructions:
Go directly to your dermatology office. They will evaluate you now. To consider stopping the lamotrigine as this may be an etiology
Interventions
Interventions:
*Risk Screen - Suicide Last Done: 05/09/24 01:58
*General Assessment Last Done: 05/09/24 07:24
*Neglect/Abuse Screening Last Done: 05/09/24 01:58
ED- Fall Risk Assessment Last Done: 05/09/24 09:17
*ED COVID-19 Vaccine History Last Done: 05/09/24 07:24
*Nursing Disposition Last Done: 05/09/24 09:35
ED-Skin Assessment Last Done: 05/09/24 09:17
Discharge Date and Time
Discharge Date/Time: 05/09/24 09:36
Print Language: ROMANSH
[2024-05-09 07:22] VITALS: BP 162/73
[2024-05-09 07:23] VITALS: BP 162/73
[2024-05-09 07:25] VITALS: BMI 23.0
[2024-05-09 07:39] LABS: % Basophils 0.4 % (0-2); % Immature Granulocytes 0.8 % (0-0.5); % Lymphocytes 30.8 % (20.5-51.1); Absolute Basophils 0.1 10^3/uL (0-0.2); Absolute Eosinophils 0.1 10^3/uL (0-0.7); Absolute Immature Granulocytes 0.1 10^3/uL (0-0.05); Absolute Lymphocytes 3.4 10^3/uL (1.2-3.4); Absolute Monocytes 1.1 10^3/uL (0.1-0.6); Absolute Neutrophils 6.3 10^3/uL (1.4-6.5); Hematocrit 36.3 % (37.0-47.0); Hemoglobin 12.1 g/dL (12.0-16.0); Mean Corp Hgb Conc. 33.3 g/dL (33.0-37.0); Mean Corpuscular Hgb 30.4 pg (27.0-31.0); Mean Corpuscular Volume 91.2 fL (81.0-99.0); Mean Platelet Volume 8.8 fL (7.4-10.4); Nucleated Red Blood Cells % 0 %; Platelet Count 251 10^3/uL (130-400); Red Blood Cell Count 3.98 10^6/uL (4.20-5.40); Red Cell Dist. Width 13.2 % (11.5-14.5); White Blood Cell Count 11.1 10^3/uL (4.8-10.8)
[2024-05-09 07:50] LABS: Blood Urea Nitrogen 34 mg/dl (7-17); Calcium 9.9 mg/dl (8.4-10.2); Carbon Dioxide 28 mmol/L (22-30); Chloride 103 mmol/L (98-107); Estimated Creatinine Clearance 44 ml/min; Glucose 90 mg/dl (70-99); Potassium 3.6 mmol/L (3.5-5.1); Sodium 140 mmol/L (135-145); eGFR > 60.00
[2024-05-09 09:35] VITALS: BP 137/81
== END 2024-05-09 09:36 | disposition home or self-care (01) ==
LOC: EMR 01:55
PROVIDERS: EMERGENCY PHYSICIAN Emergency Medicine
DX: R21 Rash and other nonspecific skin eruption (principal); I10 Essential (primary) hypertension; E78.00 Pure hypercholesterolemia, unspecified; E03.9 Hypothyroidism, unspecified; Z86.73 Personal history of transient ischemic attack (TIA), and cerebral infarction without residual deficits; Z79.899 Other long term (current) drug therapy
CPT/HCPCS: 99283; 80048; 85025

== ENCOUNTER → 2024-06-13 09:44 | Outpatient (REF) | payer MEDICARE, OTHER, SELFPAY ==
[2024-06-13 12:44] LABS: % Basophils 1.6 % (0-2); % Eosinophils 2.7 % (0-6); % Immature Granulocytes 0.2 % (0-0.5); % Lymphocytes 40.1 % (20.5-51.1); % Monocytes 11.8 % (1.7-9.3); % Neutrophils 43.6 % (42.2-75.2); Absolute Basophils 0.1 10^3/uL (0-0.2); Absolute Eosinophils 0.1 10^3/uL (0-0.7); Absolute Lymphocytes 1.8 10^3/uL (1.2-3.4); Absolute Monocytes 0.5 10^3/uL (0.1-0.6); Absolute Neutrophils 1.9 10^3/uL (1.4-6.5); Hematocrit 36.9 % (37.0-47.0); Hemoglobin 12.3 g/dL (12.0-16.0); Mean Corp Hgb Conc. 33.3 g/dL (33.0-37.0); Mean Corpuscular Volume 92.9 fL (81.0-99.0); Mean Platelet Volume 8.8 fL (7.4-10.4); Nucleated Red Blood Cells % 0 %; Platelet Count 272 10^3/uL (130-400); Red Blood Cell Count 3.97 10^6/uL (4.20-5.40); Red Cell Dist. Width 13.2 % (11.5-14.5); White Blood Cell Count 4.4 10^3/uL (4.8-10.8)
[2024-06-13 13:20] LABS: Erythrocyte Sed Rate 6 mm/hour (0-20)
[2024-06-13 13:22] LABS: C-Reactive Protein < 5.00 mg/L (0.0-10.00)
[2024-06-13 13:25] LABS: ALT (SGPT) 23 U/L (0-35); AST (SGOT) 18 U/L (14-36); Albumin 4.2 g/dl (3.5-5.0); Alkaline Phosphatase 50 U/L (38-126); Blood Urea Nitrogen 17 mg/dl (7-17); Calcium 10.1 mg/dl (8.4-10.2); Carbon Dioxide 24 mmol/L (22-30); Chloride 108 mmol/L (98-107); Glucose 119 mg/dl (70-99); Potassium 4.4 mmol/L (3.5-5.1); Sodium 141 mmol/L (135-145); Total Bilirubin 0.5 mg/dl (0.2-1.3); Total Protein 6.9 g/dl (6.3-8.2); eGFR > 60.00
[2024-06-13 13:39] LABS: Free T4 1.06 ng/dl (0.78-2.19)
[2024-06-13 13:53] LABS: TSH 1.01 uIU/ml (0.47-4.68)
== END ==
LOC: HWLAB 09:44
PROVIDERS: ATTENDING PHYSICIAN Internal Medicine
DX: I10 Essential (primary) hypertension (principal); R53.83 Other fatigue; E03.9 Hypothyroidism, unspecified
CPT/HCPCS: 36415; 80053; 84439; 84443; 85025; 85652; 86140

== ENCOUNTER → 2024-07-03 14:41 | Outpatient (REF) | payer MEDICARE, OTHER, SELFPAY | LOC: RAD 14:41 | PROVIDERS: ATTENDING PHYSICIAN Specialist; FAMILY PHYSICIAN Internal Medicine | DX: M79.89 Other specified soft tissue disorders (principal); Z96.651 Presence of right artificial knee joint; R60.0 Localized edema; M79.661 Pain in right lower leg | CPT/HCPCS: 93971 ==

== ENCOUNTER 2024-10-11 10:29 | Emergency (ER) | payer MEDICARE, OTHER, SELFPAY ==
[2024-10-11] VITALS (7 sets, daily range): BP systolic 125–153; BP diastolic 70–115
--- NOTE | 2024-10-11 10:53 | ED.GENMED ---
History of Present Illness
General
Chief Complaint: Weakness
Source: patient
Time Seen by Provider: 10/11/24 10:44
History of Present Illness
History of Present Illness:
The patient is an 79-year-old female who presented to the emergency department with dizziness and chest heaviness.The patient described the dizziness as a sensation of unsteadiness while walking. Patient woke up feeling fine. She developed the
symptoms while she was vacuuming. She tried to continue doing what she was doing but she began to feel so weak that she had to sit down. she reported feeling 'unsteady' and mentioned a feeling of heaviness on her chest, describing it as similar to
having something sitting on her chest. She also noted her heart was racing. These symptoms prompted the patient to call for an ambulance. Nitroglycerin was given, which relieved the chest discomfort. There is no current chest discomfort or
tightness. The patient currently only experiences a sensation of something on her chest, which is not the same heaviness as before. She denies any past heart problems and has no history of cardiac stents.
Past History
Past History
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
rectal prolapse, anxiety, depression)
ED Past Surgical History: Bowel resection, Cholecystectomy, Gynecological (hysterectomy), Orthopedic and Other (Partial thyroidectomy, h/o SAMAYOA procedure on the rectum secondary to rectal prolapse)
Patient has exhibited threatening behavior?: No
Social History
Tobacco: Non-smoker
Alcohol: None
Drug: None
Personal:
Living: with family
Family History
Family History: Other (Noncontributory)
Phy Exam
Physical Exam
Physical Exam:
General: Awake, Alert, Oriented X3. No acute distress.
Vitals: unremarkable
Head: Atraumatic
Eyes: Pupils equal, EOMI
Throat: Airway intact, no exudates
Neck: Trachea midline
Lungs: Clear and equal b/l
Heart: Regular rate, no murmurs
Abd: Soft, Nontender, No pulsatile mass
Neuro: Nonfocal al
Skin: Warm, dry, no rash
Extremities: pulses equal b/l, no edema
Scores
Heart Score for Chest Pain Patients
STEMI patient?: No
History: Moderately Suspicious
ECG: Nonspecific Repolarization
Age: >/= 65 years
Risk Factors: 1 or 2 Risk Factors
Troponin: </= Normal Limit
Heart Score for Chest Pain Patients: 5
Heart Score Risk: 20.3% MACE over next 6 weeks
Course
Orders/Labs/Results
Orders:
Orders
10/11/24 10:34
Electrocardiogram (*1) Urgent
Reason for Study: Chest Pain
EKG- Treatment ONCE
10/11/24 10:58
CR Chest - 2 Views Urgent
Comment:
Reason For Exam: chest pain
10/11/24 10:59
Basic Metabolic Panel Urgent
Complete Blood Count/With Diff Urgent
Magnesium Urgent
Troponin I Urgent
10/11/24 13:30
Troponin I Urgent
Abnormal Lab Results
10/11/24
10:59
WBC 4.2 L 10^3/uL
(4.8-10.8)
RBC 3.86 L 10^6/uL
(4.20-5.40)
Hgb 11.9 L g/dL
(12.0-16.0)
Hct 34.7 L %
(37.0-47.0)
Monocytes % 12.8 H %
(1.7-9.3)
Chloride 113 H mmol/L
(98-107)
BUN 20 H mg/dl
(7-17)
Creatinine 0.5 L mg/dL
(0.6-1.0)
Glucose 133 H mg/dl
(70-99)
10/11/24 10:59
10/11/24 10:59
Vital Signs
Initial and Last Documented VS:
Initial Vital Signs
Pulse BP
75 149/79
10/11/24 10:38 10/11/24 10:38
Last Documented Vital Signs
Temp Pulse Resp BP Pulse Ox
97.6 F 88 18 153/81 95
10/11/24 10:40 10/11/24 14:45 10/11/24 14:45 10/11/24 14:00 10/11/24 14:45
MDM/Problems Addressed
Differential Diagnosis Includes:
Angina, NSTEMI, GERD, chest wall discomfort
MDM/Problems Addressed:
Patient presents complaining of chest pain while she was vacuuming. Pain went away with nitro by paramedics. She is pain-free throughout her stay here in the emergency room. EKG shows no ischemic changes. Troponin is normal x 2. Given the
patient's had 2 negative troponins we will have her follow-up with cardiology as an outpatient. She was placed on the chest pain hotline for [facility] as her is a patient at [facility]. She requested to be seen because her
.
Chronic conditions affecting care: HTN and Other (TIA)
*Radiology
Radiology exam reviewed: preliminary read by ED provider (No acute abnormality)
*Pulse Oximetry
SaO2: 95
Oxygen Mode of Delivery: Room air
Patient hypoxic: no
*EKG
Interpreted by ED Provider?: Yes
Interpretation: normal
Heart Rate: 72
Rate: normal
Rhythm: sinus
Proctor: normal axis
Interval: normal interval
QRS Pattern: normal QRS
Ischemia: non-specific ST changes
*Gasket Winder Interpretation
Rate: normal
Interpretation: normal
Heart Rate: 72
Rhythm: sinus
*Critical Care Note
Total Time (30-74mins, 75-104mins- exclusive of procedures): Not Applicable
ED Attending Note
-
Portions of this chart may have been created with voice recognition software.� Occasional wrong word or��sound alike� substitutions may have occurred due to the inherent limitations of voice recognition software.
Discharge Plan
Departure
Patient Disposition: Home (Routine Discharge)
Date of Disposition: 10/11/24
Time of Disposition: 14:38
Patient with high blood pressure during this ER visit?: Yes
Condition: Good
Discharge Problem:
Chest pain
Instructions: Chest Pain [facility] Follow Up, BLOOD PRESSURE
Prescriptions:
No Action
levothyroxine 75 MCG tablet
75 mcg PO DAILY
atorvastatin 40 MG tablet
40 mg PO DAILY
fluorometholone 1 DROP drops,suspension
1 drp BOTH EYES BID
Patient Comments:
to affected eye
losartan 50 MG tablet
100 mg PO DAILY
latanoprost 1 DROP drops
1 drp LEFT EYE HS
clonazepam 1 MG tablet
1 mg PO BID
multivitamin with folic acid [Tab-A-David] 1 TABLET tablet
1 tab PO DAILY
Probiotic 5 billion cell Capsule, Sprinkle
2 cap PO DAILY
omeprazole 40 mg Capsule,Delayed Release(Dr/Ec)
40 mg PO DAILY
ascorbic acid (vitamin C) [Vitamin C] 500 MG tablet
500 mg PO DAILY
famotidine 40 mg Tablet
40 mg PO DAILY PRN (Reason: acid reflux)
gabapentin 300 mg Capsule
300 mg PO TID
lamotrigine 100 mg Tablet
150 mg PO DAILY
Citrucel Fiber Laxative
1 dose PO DAILY
Erythromycin Eye Drops
1 drp BOTH EYES DAILY
trazodone 50 mg Tablet
50 mg PO DAILY
pantoprazole 40 mg Tablet,Delayed Release (Dr/Ec)
40 mg PO BID
Gemtesa 75 mg Tablet
75 mg PO DAILY
Estradion Vagirnal Cream
1 applic vaginal .2XAWEEK
Vitamin D (with calcium)
1 tab PO Q48H
magnesium
300 mg PO PRN PRN (Reason: .as directed)
Referrals:
Christian Foster MD [Active, Cardiology]
Yehuda Ovalles MD [Family Provider, Internal Medicine]
Activity Restrictions/Additional Instructions:
Return to the emergency room if you have any more chest pressure. You should receive a call from the cardiology office Sunday. Call them if you do not hear from them by noon.
Interventions
Interventions:
*Risk Screen - Suicide Last Done: 10/11/24 10:43
*General Assessment Last Done: 10/11/24 10:49
*Neglect/Abuse Screening Last Done: 10/11/24 10:43
*Nursing Disposition Last Done: 10/11/24 14:55
ED- Cardiac Assessment Last Done: 10/11/24 10:54
ED- Neurological Assessment Last Done: 10/11/24 10:55
ED- Pulmonary Assessment Last Done: 10/11/24 10:55
Discharge Date and Time
Discharge Date/Time: 10/11/24 15:01
Print Language: KYRGYZ
[2024-10-11 11:06] LABS: Hematocrit 34.7 % (37.0-47.0); Hemoglobin 11.9 g/dL (12.0-16.0); Mean Corp Hgb Conc. 34.3 g/dL (33.0-37.0); Mean Corpuscular Volume 89.9 fL (81.0-99.0); Nucleated Red Blood Cells % 0 %; Platelet Count 206 10^3/uL (130-400); Red Cell Dist. Width 12.7 % (11.5-14.5)
[2024-10-11 11:19] LABS: Blood Urea Nitrogen 20 mg/dl (7-17); Calcium 9.8 mg/dl (8.4-10.2); Carbon Dioxide 24 mmol/L (22-30); Chloride 113 mmol/L (98-107); Glucose 133 mg/dl (70-99); Magnesium 1.9 mg/dl (1.6-2.3); Potassium 3.9 mmol/L (3.5-5.1); Sodium 143 mmol/L (135-145); eGFR > 60.00
[2024-10-11 11:30] LABS: Troponin I < 0.012 ng/ml
[2024-10-11 14:03] LABS: Troponin I < 0.012 ng/ml
== END 2024-10-11 15:01 | disposition home or self-care (01) ==
LOC: EMR 10:29
PROVIDERS: EMERGENCY PHYSICIAN Emergency Medicine; FAMILY PHYSICIAN Internal Medicine
DX: R07.89 Other chest pain (principal); R42 Dizziness and giddiness; R53.1 Weakness; I10 Essential (primary) hypertension; E78.00 Pure hypercholesterolemia, unspecified; E03.9 Hypothyroidism, unspecified; F41.9 Anxiety disorder, unspecified; F32.A Depression, unspecified; Z86.73 Personal history of transient ischemic attack (TIA), and cerebral infarction without residual deficits; Z98.0 Intestinal bypass and anastomosis status; Z90.49 Acquired absence of other specified parts of digestive tract; Z88.1 Allergy status to other antibiotic agents; Z88.5 Allergy status to narcotic agent; Z88.8 Allergy status to other drugs, medicaments and biological substances; Z91.048 Other nonmedicinal substance allergy status
CPT/HCPCS: 99284; 71046; 80048; 83735; 84484; 85025; 93005

== ENCOUNTER → 2024-10-22 08:07 | Outpatient (REF) | payer MEDICARE, OTHER, SELFPAY | LOC: HWRCS 08:07 | PROVIDERS: ATTENDING PHYSICIAN Internal Medicine Cardiovascular Disease; FAMILY PHYSICIAN Internal Medicine | DX: R07.89 Other chest pain (principal); R06.02 Shortness of breath | CPT/HCPCS: 93306 ==

== ENCOUNTER → 2025-01-12 09:15 | Outpatient (REF) | payer MEDICARE, OTHER, SELFPAY | LOC: RAD 09:15 | PROVIDERS: ATTENDING PHYSICIAN Nurse Practitioner; FAMILY PHYSICIAN Internal Medicine | DX: R13.19 Other dysphagia (principal) | CPT/HCPCS: 74246 ==

== ENCOUNTER → 2025-01-19 10:25 | Outpatient (REF) | payer MEDICARE, OTHER, SELFPAY | LOC: HWWDC 10:25 | PROVIDERS: ATTENDING PHYSICIAN Physician Assistant | DX: Z12.31 Encounter for screening mammogram for malignant neoplasm of breast (principal) | CPT/HCPCS: 77063; 77067 ==

== ENCOUNTER → 2025-01-20 09:46 | Outpatient (REF) | payer MEDICARE, OTHER, SELFPAY ==
[2025-01-20 12:08] LABS: Urine Character Clear (Clear)
[2025-01-20 12:45] LABS: Urine Red Blood Cell 0-2 /HPF (0-2)
== END ==
LOC: HWLAB 09:46
PROVIDERS: ATTENDING PHYSICIAN Nurse Practitioner; FAMILY PHYSICIAN Internal Medicine
DX: N39.0 Urinary tract infection, site not specified (principal)
CPT/HCPCS: 81003; 81015; 87086

== ENCOUNTER 2025-01-24 13:55 | Emergency (ER) | payer MEDICARE, OTHER, SELFPAY ==
[2025-01-24 14:03] VITALS: BP 159/87
--- NOTE | 2025-01-24 16:32 | ED.MUSCINJ ---
HPI-Injury
General
Chief Complaint: Extremity Pain (non-traumatic)
Source: patient
Exam Limitations: none
Time Seen by Provider: 01/24/25 15:36
History of Present Illness-Injury
Initial Injury comments:
80-year-old female presents complaining of increasing right groin and upper thigh pain. Comes sharp in nature spasm in nature does not proceed through the knee. No associated bowel or bladder dysfunction. No fevers. Initially when this pain
started she had black and blue discoloration of the area. She was initially seen at the urgent care and sent in for DVT rule out. She is not anticoagulated. No chest pain or shortness of breath. She has been using Tylenol. She notes she has
been under a lot of stress taking care of her who has myasthenia gravis. She does not recall any known injury. No other complaints at this time
Past History
Past History
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
rectal prolapse, anxiety, depression)
ED Past Surgical History: Bowel resection, Cholecystectomy, Gynecological (hysterectomy), Orthopedic and Other (Partial thyroidectomy, h/o SAMAYOA procedure on the rectum secondary to rectal prolapse)
Patient has exhibited threatening behavior?: No
Social History
Tobacco: Non-smoker
Alcohol: None
Drug: None
Personal:
Living: with family
Family History
Family History: Other (Noncontributory)
Phy Exam
Physical Exam
Physical Exam:
General: Well-appearing female no acute respiratory distress
HEENT normal cephalic atraumatic
Heart: Regular rate and rhythm
Lungs: Clear no wheeze
Musculoskeletal exam: Good range of motion of the right hip and knee. She is slightly tender over the proximal medial thigh and right inguinal region. No overlying skin changes
She has a 2+ DP pulse to the right foot with good sensation to the right leg negative straight leg raise bilaterally
Skin is without rash
Injury Course
Orders/Labs/Results
Orders:
Orders
01/24/25 14:07
Periph Venous Lwr Ext Rt US [US Periph Venous LOWER Ext RT] Urgent
Comment:
Reason For Exam: pain
01/24/25 16:29
CR Hip - RT w/wo Pel 2-3 Vw* Urgent
Comment:
Reason For Exam: pain in groin
Include a pelvis x-ray?: Yes
MDM/Problems Addressed
Differential Diagnosis Includes:
Patient with right hip and thigh pain. Sent in by urgent care to evaluate for DVT. Ultrasound of the leg was ordered through triage which I reviewed and is negative for DVT. X-ray pending to evaluate for any underlying degenerative joint disease
or fracture. If negative consider radiculopathy versus pain.
*Pulse Oximetry
SaO2: 97
Oxygen Mode of Delivery: Room air
Patient hypoxic: no
*Critical Care Note
Total Time (30-74mins, 75-104mins- exclusive of procedures): Not Applicable
Update Note
Update Note:
Ultrasound initially negative for DVT x-ray was added which does demonstrate a metallic foreign body in the form of a needle in the upper medial thigh in the location of the patient comfort. The patient does admit to sewing frequently. She does
not recall getting stuck with a needle but this would potentially explain her pain and bruising that she had. Consent was obtained for removal of the needle. The area was prepped and draped anesthetized with 1% lidocaine with epinephrine. A 15
blade scalpel was used for an incision over the palpable foreign body. Blunt dissection occurred with needle drivers and the end of the needle was exposed with pressure and removed easily in its entirety with a pair of needle drivers. This was
then irrigated and the incision was closed with 5-0 Prolene sutures. 3 sutures were required to do so. I suspect this was the source of the patient's discomfort in her thigh. Sutures to removed to be removed in 10 to 14 days
ED Attending Note
-
Portions of this chart may have been created with voice recognition software.� Occasional wrong word or��sound alike� substitutions may have occurred due to the inherent limitations of voice recognition software.
Discharge Plan
Departure
Patient Disposition: Home (Routine Discharge)
Date of Disposition: 01/24/25
Time of Disposition: 18:50
Patient with high blood pressure during this ER visit?: No
Discharge Problem:
Foreign body in skin
Instructions: Foreign Body in Skin ED
Prescriptions:
No Action
levothyroxine 75 MCG tablet
75 mcg PO DAILY
atorvastatin 40 MG tablet
40 mg PO DAILY
fluorometholone 1 DROP drops,suspension
1 drp BOTH EYES BID
Patient Comments:
to affected eye
losartan 50 MG tablet
100 mg PO DAILY
latanoprost 1 DROP drops
1 drp LEFT EYE HS
clonazepam 1 MG tablet
1 mg PO BID
multivitamin with folic acid [Tab-A-David] 1 TABLET tablet
1 tab PO DAILY
Probiotic 5 billion cell Capsule, Sprinkle
2 cap PO DAILY
omeprazole 40 mg Capsule,Delayed Release(Dr/Ec)
40 mg PO DAILY
ascorbic acid (vitamin C) [Vitamin C] 500 MG tablet
500 mg PO DAILY
famotidine 40 mg Tablet
40 mg PO DAILY PRN (Reason: acid reflux)
Citrucel Fiber Laxative
1 dose PO DAILY
Erythromycin Eye Drops
1 drp BOTH EYES DAILY
trazodone 50 mg Tablet
50 mg PO DAILY
Gemtesa 75 mg Tablet
75 mg PO DAILY
Vitamin D (with calcium)
1 tab PO Q48H
escitalopram oxalate 10 mg Tablet
10 mg PO DAILY
Referrals:
Yehuda Ovalles MD [Family Provider, Internal Medicine]
Activity Restrictions/Additional Instructions:
There are 3 sutures in your leg. Have them removed in 10 to 14 days. Return if needed otherwise
Interventions
Interventions:
*Risk Screen - Suicide Last Done: 01/24/25 14:03
*General Assessment Last Done: 01/24/25 14:03
*Neglect/Abuse Screening Last Done: 01/24/25 14:03
*ED- Fall Risk Assessment Last Done: 01/24/25 16:09
*ED COVID-19 Vaccine History Last Done: 01/24/25 16:09
*ED Influenza Vaccine History Last Done: 01/24/25 16:09
ED-Skin Assessment Last Done: 01/24/25 16:09
ED-Peripheral Vascular Assessment Last Done: 01/24/25 16:09
ED-Musculoskeletal Assessment Last Done: 01/24/25 16:09
Discharge Date and Time
Print Language: ROMANSH
[2025-01-24 16:40] VITALS: BP 189/89
== END 2025-01-24 19:11 | disposition home or self-care (01) ==
LOC: EMR 13:55
PROVIDERS: EMERGENCY PHYSICIAN Emergency Medicine; FAMILY PHYSICIAN Internal Medicine
DX: S70.351A Superficial foreign body, right thigh, initial encounter (principal); W27.3XXA Contact with needle (sewing), initial encounter; I10 Essential (primary) hypertension; E78.00 Pure hypercholesterolemia, unspecified; E03.9 Hypothyroidism, unspecified
CPT/HCPCS: 10120; 99284; 73502; 93971

== ENCOUNTER → 2025-02-25 16:12 | Outpatient (REF) | payer MEDICARE, OTHER, SELFPAY ==
[2025-02-25 16:56] LABS: Urine Character Clear (Clear)
== END ==
LOC: REG 16:12
PROVIDERS: ATTENDING PHYSICIAN Nurse Practitioner; FAMILY PHYSICIAN Internal Medicine
DX: N39.0 Urinary tract infection, site not specified (principal)
CPT/HCPCS: 81003; 81015; 87086